=== PATIENT | female | born 1950 | race Caucasian/White ===

== ENCOUNTER → 2021-04-08 02:02 | Outpatient (CLI) | payer MEDICARE, SELFPAY ==
[2021-04-08 19:43] LABS: SARS-CoV-2 RNA PCR Negative
== END ==
PROVIDERS: Visit Provider Internal Medicine Gastroenterology
DX: Z01.812 Encounter for preprocedural laboratory examination (principal); Z20.822 Contact with and (suspected) exposure to COVID-19
CPT/HCPCS: C9803; U0003; U0005

== ENCOUNTER 2021-04-12 02:27 | Day surgery (SDC) | payer MEDICARE, SELFPAY ==
[2021-03-31 15:44] VITALS: BMI 21.9
--- NOTE | 2021-04-12 07:49 | WPDANESEPPF ---
Anes - Initial Pre Proc Eval Procedure: Operation Date: 04/12/21 09:30 Proposed Procedures p Esophagogastroduodenoscopy & Colonoscopy - Steven Bingham MD Date/Time: 04/12/21 07:49 Surgeon: Steven Bingham MD Pre Op Diagnosis: diarrhea, epigastric pain Patient Data Age: 70 Gender: F Height: 1.6 m Weight: 56 kg Allergies Allergy/AdvReac Type Severity Reaction Status Date / Time bee venom protein (honey bee) Allergy Severe Swelling Verified 04/12/21 08:41 naproxen [From Aleve] Allergy Mild high blood Verified 04/12/21 08:41 pressure Home Medications Medication Instructions Recorded Confirmed Type alprazolam 0.25 mg tablet 0.25 mg PO QHS PRN 03/17/21 03/31/21 History epinephrine 0.3 mg/0.3 mL 0.3 mg IM ONCE 03/17/21 03/31/21 History injection, auto-injector M.V.I. 1 tab-cap PO DAILY 03/31/21 03/31/21 History ascorbic acid (vitamin C) 500 mg PO DAILY 03/31/21 03/31/21 History hydrochlorothiazide 12.5 mg PO DAILY 03/31/21 03/31/21 History Patient hx anesthesia problems: none Family hx anesthesia problems: none PMFSH Past Medical History Medical History Anxiety Arthritis Hyperlipidemia Hypertension IBS (irritable bowel syndrome) Social History Social History Smoking status: Never smoker Alcohol intake: current Drinks per week: 1 Substance use: never Substance use type: does not use Living arrangements: with family Gender identity (if verbalized by the patient): Female Spiritual care concerns: No Anes - Eval Final PreProcedure Day of Procedure 04/12/21 07:49 Patient weight: normal Heart: regular rate and rhythm Lungs: clear to auscultation and normal air movement Airway: Mallampati scale class II Neurological: alert and oriented Last oral intake: >/= 8 hours ASA classification: II Emergent: no Anesthetic plan: proceed Anesthesia type and monitoring: general GIVS Informed Consent: The patient's anesthetic plan and its attendant risks and benefits were discussed with the patient/family/POA. Questions were solicited and answers provided to the satisfaction of the patient/family/POA.
[2021-04-12 08:43] VITALS: BP 148/79; PULSE 82; RESP 20; TEMP 36.3; O2SAT 100
[2021-04-12] MEDS: LACTATED RINGERS 1,000 ML 150 ML IV CONT (08:51)
--- NOTE | 2021-04-12 09:14 | PM.HPGS ---
History of Present Illness History of Present Illness Consent: Risks, benefits, and alternatives have been discussed and questions answered. Patient agrees to proceed with procedure. Chief complaint: diarrhea, epigastric pain Narrative: Anya Molina is a 70 year old female who has been troubled by epigastric pain for the past several months. She has lost about 15 lb. She also has had incessant diarrhea. Stool cultures were done that were negative. Review of Systems Review of Systems: All systems reviewed & are unremarkable except as noted in HPI and below PMFSH Past Medical History Medical History Anxiety Arthritis Hyperlipidemia Hypertension IBS (irritable bowel syndrome) Social History Social History Smoking status: Never smoker Alcohol intake: current Drinks per week: 1 Substance use: never Substance use type: does not use Living arrangements: with family Gender identity (if verbalized by the patient): Female Spiritual care concerns: No Meds Home Medications and Allergies Home Medications Medication Instructions Recorded Confirmed Type alprazolam 0.25 mg tablet 0.25 mg PO QHS PRN 03/17/21 03/31/21 History epinephrine 0.3 mg/0.3 mL 0.3 mg IM ONCE 03/17/21 03/31/21 History injection, auto-injector M.V.I. 1 tab-cap PO DAILY 03/31/21 03/31/21 History ascorbic acid (vitamin C) 500 mg PO DAILY 03/31/21 03/31/21 History hydrochlorothiazide 12.5 mg PO DAILY 03/31/21 03/31/21 History Allergies Allergy/AdvReac Type Severity Reaction Status Date / Time bee venom protein (honey bee) Allergy Severe Swelling Verified 04/12/21 08:41 naproxen [From Aleve] Allergy Mild high blood Verified 04/12/21 08:41 pressure Vital Signs Vital Signs - 24 hr 04/12/21 08:43 Temperature 36.3 C L Pulse Rate 82 Respiratory Rate 20 Blood Pressure 148/79 H Pulse Oximetry 100 Exam Const: General: alert Orientation/consciousness: patient oriented x3 Resp: Auscultation: clear to auscultation bilaterally Cardio: Rhythm: regular rhythm GI: GI Palp: Yes Soft to palpation and No Tenderness to palpation present (GI) Neuro: General: patient oriented x3 Assessment and Plan Assessment and plan (1) Epigastric pain: Code(s): R10.13 - Epigastric pain Status: Acute Assessment and Plan: EGD with possible biopsy or dilatation or cautery. (2) Chronic diarrhea: Code(s): K52.9 - Noninfective gastroenteritis and colitis, unspecified Status: Acute Assessment and Plan: Colonoscopy with possible biopsy or polypectomy or cautery or injection of substances.
[2021-04-12] MEDS: BENZOCAINE (*SP) 60 ML SPRAY CAN (HURRICAINE) 1 SPRAY MUCOUS MEM (09:28)
[2021-04-12 10:09] VITALS: BP 96/61; PULSE 57; RESP 13; O2SAT 99
[2021-04-12 10:19] VITALS: BP 98/63; PULSE 67; RESP 19; O2SAT 98
[2021-04-12 10:29] VITALS: BP 145/75; PULSE 57; RESP 18; O2SAT 100
== END 2021-04-12 10:42 | disposition home or self-care (01) ==
PROVIDERS: Visit Provider Internal Medicine Gastroenterology
PROC: 0DJ08ZZ Inspection of Upper Intestinal Tract, Via Natural or Artificial Opening Endoscopic (ICD-10-PCS; CPT 43235; principal; 2021-04-12 09:30)
DX: K52.9 Noninfective gastroenteritis and colitis, unspecified (principal); K21.9 Gastro-esophageal reflux disease without esophagitis; K29.70 Gastritis, unspecified, without bleeding; R63.4 Abnormal weight loss; E78.5 Hyperlipidemia, unspecified; I10 Essential (primary) hypertension; F41.9 Anxiety disorder, unspecified; M19.90 Unspecified osteoarthritis, unspecified site
CPT/HCPCS: 45380; 43239; 87081; 88305; J2704; J7120